=== PATIENT | female | born 1965 | race Native Hawaiian/Other Pacific Islander ===

== ENCOUNTER 2017-07-28 12:39 | Emergency (ER) | payer BC ==
[~2017-07-28] VITALS: Ht 160 cm; Wt 86.2 kg
== END 2017-07-28 14:37 | disposition home or self-care (01) ==
LOC: ED 12:39
DX: M25.532 Pain in left wrist (principal)
CPT/HCPCS: 99282

== ENCOUNTER 2017-12-22 15:29 | Outpatient (CLI) | payer BC | END 2017-12-22 20:28 | disposition home or self-care (01) | LOC: RAD 15:29 | DX: M53.3 Sacrococcygeal disorders, not elsewhere classified (principal) ==

== ENCOUNTER 2018-01-18 15:46 | Outpatient (CLI) | payer BC | END 2018-01-18 21:27 | disposition home or self-care (01) | LOC: CT 15:46 | DX: M53.3 Sacrococcygeal disorders, not elsewhere classified (principal); R10.84 Generalized abdominal pain | CPT/HCPCS: 36415; 82565; 84520; Q9963 ==

== ENCOUNTER 2022-08-27 12:10 | Emergency (ER) | payer BC ==
[~2022-08-27] VITALS: Ht 160 cm; Wt 81.6 kg
[2022-08-27 12:10] VITALS: TEMP 98
[2022-08-27 14:34] VITALS: BP 167/88
== END 2022-08-27 14:40 | disposition home or self-care (01) ==
LOC: ED 12:10
DX: M25.561 Pain in right knee (principal)
CPT/HCPCS: 96360; 96374; 96375; 99284; J2270; J2405

== ENCOUNTER 2023-10-23 08:31 | Outpatient (CLI) | payer BC | END 2023-10-23 20:01 | disposition home or self-care (01) | LOC: CT 08:31 | PROVIDERS: ATTEND Internal Medicine | DX: R10.9 Unspecified abdominal pain (principal) | CPT/HCPCS: 82565; 84520; Q9963 ==